=== PATIENT | male | born 1995 | race Caucasian/White ===

== ENCOUNTER 2019-08-17 19:26 | Emergency (ER) | payer SELFPAY ==
[~2019-08-17] VITALS: Ht 162.6 cm; Wt 81.6 kg
[2019-08-17 19:33] VITALS: Ht 162.6 cm; Wt 81.6 kg
[2019-08-17 20:36] VITALS: BP 133/82
== END 2019-08-17 20:36 | disposition home or self-care (01) ==
LOC: ED 19:26
DX: R06.02 Shortness of breath (principal); R03.0 Elevated blood-pressure reading, without diagnosis of hypertension